=== PATIENT | male | born 1985 | race Caucasian/White ===

== ENCOUNTER 2018-07-11 17:49 | Emergency (ER) | payer OTHER ==
[~2018-07-11 17:49] MED LIST: ALBUAER INH
[2018-07-11 18:01] VITALS: TEMP 37; Ht 188 cm
[2018-07-11] MEDS ORDERED: ONDANSETRON INJ 2 MG/ML 2 ML VIAL IV STA (18:01)
[2018-07-11] MEDS ORDERED: MoRPHine SULFATE 4 MG/ML 1 ML CARP\\VIAL IV STA ×2 (18:01→18:38)
[2018-07-11] MEDS ORDERED: OPTIRAY 320 IV PRN (18:15)
[2018-07-11] MEDS ORDERED: VNTHFA/IN INH (18:19)
[2018-07-11 18:21] LABS: BASO % 0.8 %; BASO ABS # 0.07 K/uL (0-0.2); EOS % 4.6 %; EOS ABS # 0.42 K/uL (0-0.5); HEMATOCRIT 41.3 % (42-52); HEMOGLOBIN 14.8 g/dL (14.0-18.0); IG# 0.03 K/uL (0.00-0.02); LYMPH % 14.8 %; LYMPH ABS # 1.34 K/uL (1.2-3.4); MEAN CELL VOLUME 85.9 fL (80-100); MEAN CORPUSCULAR HEMOGLOBIN 30.8 pg (25-34); MEAN CORPUSCULAR HGB CONC 35.8 g/dl (32-36); MEAN PLATELET VOLUME 10.6 fL (7.4-10.4); MONO ABS # 0.54 K/uL (0.11-0.59); NEUT % 73.5 %; NEUT ABS # 6.67 K/uL (1.4-6.5); PLATELET COUNT 229 K/uL (130-400); RED CELL DISTRIBUTION WIDTH CV 12.3 % (11.5-14.5); RED CELL DISTRIBUTION WIDTH SD 38.2 fL (36.4-46.3); WHITE BLOOD COUNT 9.07 K/uL (4.8-10.8)
[2018-07-11 18:25] LABS: ISTAT CREATININE 1.3 mg/dl (0.6-1.3); ISTAT IONIZED CALCIUM 1.13 mmol/l (1.12-1.32); ISTAT POTASSIUM 3.5 mEq/L (3.3-5.0)
[2018-07-11 18:47] LABS: ALBUMIN 4.5 gm/dl (3.4-5.0); ALKALINE PHOSPHATASE 90 U/L (45-117); ALT/SGPT 25 U/L (12-78); AST/SGOT 24 U/L (15-37); BLOOD UREA NITROGEN 14 mg/dl (7-18); CALCIUM 8.8 mg/dl (8.5-10.1); CARBON DIOXIDE 26 mmol/L (21-32); CREATININE 1.32 mg/dl (0.60-1.40); POTASSIUM 3.5 mmol/L (3.5-5.1); SODIUM 141 mmol/L (136-145)
[2018-07-11 18:48] LABS: GLUCOSE 52 mg/dl (70-99)
[2018-07-11] MEDS ORDERED: DEXTROSE 50% 50 ML SYR IV STA ×2 (18:48→19:54)
--- NOTE | 2018-07-11 18:50 | DIAGNOSTIC IMAGING REPORT ---
CT OF THE CERVICAL SPINE WITHOUT CONTRAST CLINICAL HISTORY: Fall. COMPARISON STUDY: No previous studies for comparison. TECHNIQUE: Helical axial images of the cervical spine were obtained without IV contrast. Sagittal and coronal reconstructions were viewed. A dose lowering technique was utilized adhering to the principles of ALARA. FINDINGS: Alignment of the cervical spine is anatomic. Vertebral body heights are maintained. Craniocervical junction is intact. There is no acute cervical spine fracture. IMPRESSION: No acute cervical spine fracture or subluxation. Electronically signed by: Titi Hays M.D. 07/11/2018 6:49 PM Dictated Date/Time: 07/11/2018 6:47 PM
--- NOTE | 2018-07-11 19:03 | DIAGNOSTIC IMAGING REPORT ---
THORACIC SPINE CT CLINICAL HISTORY: Fall. COMPARISON STUDY: No previous studies for comparison. TECHNIQUE: Axial images of the thoracic spine were obtained without IV contrast. Sagittal and coronal reconstructions were viewed. FINDINGS: Note is made of an acute fracture of the T9 vertebral body which involves the superior and inferior endplates with 40% loss of vertebral body height. Fracture extends to the posterior cortex. There is no retropulsion. No extension into the posterior elements is noted. There is moderate paravertebral hemorrhage. Equivocal epidural hematoma is noted. This may be artifactual and is suboptimally assessed by CT. No additional acute thoracic spine fractures are noted. IMPRESSION: Acute burst fracture of the T9 vertebral body which involves the superior and inferior endplates as well as the posterior cortex. No retropulsion. No extension into the posterior elements. 40% loss of vertebral body height. Associated paravertebral hematoma. Apparent associated epidural hematoma may be artifactual however an MRI of the thoracic spine is recommended. Electronically signed by: Titi Hays M.D. 07/11/2018 7:02 PM Dictated Date/Time: 07/11/2018 6:49 PM
--- NOTE | 2018-07-11 19:12 | DIAGNOSTIC IMAGING REPORT ---
CT OF THE ABDOMEN AND PELVIS WITH CONTRAST CLINICAL HISTORY: Fall. COMPARISON STUDY: None. TECHNIQUE: Following IV administration of Optiray-320, axial images of the abdomen and pelvis were obtained from the lung bases to the proximal femurs. Images were reviewed in the axial, sagittal, and coronal planes. IV contrast was administered without complication. A dose lowering technique was utilized adhering to the principles of ALARA. CT DOSE: 2158.23 mGy.cm FINDINGS: No hemoperitoneum or pneumoperitoneum is present. There is no evidence for traumatic injury to the liver, spleen, adrenal glands, kidneys or pancreas. Caliber and wall thickness of small and large bowel are normal. There may be a previous right inguinal hernia repair with mesh. No acute lumbar spine fracture is identified. A T9 burst fracture is noted with possible associated epidural hematoma. No acute pelvic fracture is identified. IMPRESSION: 1. No evidence of traumatic injury to the solid abdominal viscera. 2. Moderate acute T9 burst fracture with paravertebral hematoma and possible associated epidural hematoma. An MRI of the thoracic spine is recommended. Findings discussed with Dr. Nation at time of dictation. Electronically signed by: Titi Hays M.D. 07/11/2018 7:11 PM Dictated Date/Time: 07/11/2018 7:02 PM
--- NOTE | 2018-07-11 19:14 | DIAGNOSTIC IMAGING REPORT ---
LUMBAR SPINE CT CLINICAL HISTORY: Fall. COMPARISON STUDY: No previous studies for comparison. TECHNIQUE: Axial images of the lumbar spine were obtained. Sagittal and coronal reconstructions were viewed. FINDINGS: Alignment of the lumbar spine is anatomic. Vertebral body heights are maintained. There is no acute fracture. The CT of the abdomen and pelvis will be reported separately. Facet joints are intact. Sacroiliac joints are intact. IMPRESSION: No acute lumbar spine fracture or subluxation. Electronically signed by: Titi Hays M.D. 07/11/2018 7:13 PM Dictated Date/Time: 07/11/2018 7:11 PM
[2018-07-11] MEDS ORDERED: HYDROmorphone INJ 1 MG/ML SYR IV STA (19:54)
--- NOTE | 2018-07-11 20:51 | EMERGENCY ROOM VISIT NOTE ---
History Report prepared by Elizabeth: Floyd Hernández Under the Supervision of: Dr. Dylan Nation M.D. First contact with patient: 17:53 Stated Complaint: FALL OUT OF TREE, TINGLING IN SPINE History of Present Illness The patient is a 33 year old male who presents to the Emergency Room with complaints of a fall. The patient reports he was in a tree when he slipped while trying to get out. He notes he fell approximately 8 feet and landed on his buttocks on dirt. He notes he did land on his buttocks, and did not hit his head or have LOC. He notes when he fell he had tingling and weakness in his bilateral legs, which he notes only lasted a few seconds and has since resolved. He states at this time he has mid-back pain and tingling to the back, but denies any pain to his neck or upper/lower back. The patient does note upper abdominal pain at this time. He denies chest pain or shortness of breath Source of History: patient Onset: x30 minutes Position: back Symptom Intensity: moderate Quality: ache Timing: constant Modifying Factors (Worsening): rest Modifying Factors (Relieving): movement Associated Symptoms: + abdominal pain, + back pain, No LOC, No headache, No neck pain, No chest pain, No SOB, No nausea, No vomiting, No diarrhea, No urinary symptoms, No weakness, No numbness Review of Systems See HPI for pertinent positives & negatives. A total of 10 systems reviewed and were otherwise negative. Constitutional: No fever, No chills Respiratory: No shortness of breath Cardiovascular: No chest pain Abdomen: + pain, No nausea, No vomiting, No diarrhea Musculoskeletal: + muscle pain (back) Genitourinary - Male: No hematuria, No dysuria, No urinary frequency, No urinary urgency Integumentary: No rash Past Medical & Surgical Medical Problems: (1) No Known Active Medical Problems Family History Patient reports no known family medical history. Social History Smoking Status: Never Smoker Alcohol Use: none Drug Use: none Marital Status: single Housing Status: other (lives with mother) Occupation Status: employed Current/Historical Medications Scheduled PRN Albuterol Hfa (Ventolin Hfa), 2 PUFFS INH Q6H PRN for SOB/Wheezing Allergies Coded Allergies: No Known Allergies (Unverified , 11/05/15) Physical Exam Vital Signs Date Time Temp Pulse Resp B/P (MAP) Pulse Ox O2 Delivery O2 Flow Rate FiO2 07/11/18 20:31 74 26 137/79 98 Room Air 07/11/18 20:01 69 27 134/89 97 Room Air 07/11/18 19:31 76 24 126/89 97 Room Air 07/11/18 19:30 71 20 126/89 98 Room Air 07/11/18 18:31 81 07/11/18 18:29 84 18 136/82 98 Room Air 07/11/18 18:01 37.0 75 16 140/94 100 Room Air Physical Exam Constitutional: Vital signs reviewed. Eyes: Pupils are equal round reactive to light. Conjunctiva are noninjected. ENT: Pharynx is clear without erythema or exudate. Mucous membranes are moist. Mild midline tenderness to the cervical spine without stepoff or deformity. Respiratory: Clear to auscultation bilaterally. Breath sounds are equal bilaterally. Cardiovascular: Regular rate and rhythm. No rubs or gallops. GI: Soft, nondistended. Tenderness RUQ with no guarding. Bowel sounds are present. Musculoskeletal: No chest wall tenderness. No extremity tenderness. Integumentary: No cyanosis. Neurological: The patient is awake and alert. Cranial nerves II-XII are intact. Motor is 5 out of 5 all extremities. Sensation is intact to light touch all extremities. Normal speech. No pronator drift. Psychiatric: Normal affect. Medical Decision & Procedures ER Provider Diagnostic Interpretation: CT OF THE ABDOMEN AND PELVIS WITH CONTRAST CLINICAL HISTORY: Fall. COMPARISON STUDY: None. TECHNIQUE: Following IV administration of Optiray-320, axial images of the abdomen and pelvis were obtained from the lung bases to the proximal femurs. Images were reviewed in the axial, sagittal, and coronal planes. IV contrast was administered without complication. A dose lowering technique was utilized adhering to the principles of ALARA. CT DOSE: 2158.23 mGy.cm FINDINGS: No hemoperitoneum or pneumoperitoneum is present. There is no evidence for traumatic injury to the liver, spleen, adrenal glands, kidneys or pancreas. Caliber and wall thickness of small and large bowel are normal. There may be a previous right inguinal hernia repair with mesh. No acute lumbar spine fracture is identified. A T9 burst fracture is noted with possible associated epidural hematoma. No acute pelvic fracture is identified. IMPRESSION: 1. No evidence of traumatic injury to the solid abdominal viscera. 2. Moderate acute T9 burst fracture with paravertebral hematoma and possible associated epidural hematoma. An MRI of the thoracic spine is recommended. Findings discussed with Dr. Nation at time of dictation. CT OF THE CERVICAL SPINE WITHOUT CONTRAST CLINICAL HISTORY: Fall. COMPARISON STUDY: No previous studies for comparison. TECHNIQUE: Helical axial images of the cervical spine were obtained without IV contrast. Sagittal and coronal reconstructions were viewed. A dose lowering technique was utilized adhering to the principles of ALARA. FINDINGS: Alignment of the cervical spine is anatomic. Vertebral body heights are maintained. Craniocervical junction is intact. There is no acute cervical spine fracture. IMPRESSION: No acute cervical spine fracture or subluxation. LUMBAR SPINE CT CLINICAL HISTORY: Fall. COMPARISON STUDY: No previous studies for comparison. TECHNIQUE: Axial images of the lumbar spine were obtained. Sagittal and coronal reconstructions were viewed. FINDINGS: Alignment of the lumbar spine is anatomic. Vertebral body heights are maintained. There is no acute fracture. The CT of the abdomen and pelvis will be reported separately. Facet joints are intact. Sacroiliac joints are intact. IMPRESSION: No acute lumbar spine fracture or subluxation. THORACIC SPINE CT CLINICAL HISTORY: Fall. COMPARISON STUDY: No previous studies for comparison. TECHNIQUE: Axial images of the thoracic spine were obtained without IV contrast. Sagittal and coronal reconstructions were viewed. FINDINGS: Note is made of an acute fracture of the T9 vertebral body which involves the superior and inferior endplates with 40% loss of vertebral body height. Fracture extends to the posterior cortex. There is no retropulsion. No extension into the posterior elements is noted. There is moderate paravertebral hemorrhage. Equivocal epidural hematoma is noted. This may be artifactual and is suboptimally assessed by CT. No additional acute thoracic spine fractures are noted. IMPRESSION: Acute burst fracture of the T9 vertebral body which involves the superior and inferior endplates as well as the posterior cortex. No retropulsion. No extension into the posterior elements. 40% loss of vertebral body height. Associated paravertebral hematoma. Apparent associated epidural hematoma may be artifactual however an MRI of the thoracic spine is recommended. Laboratory Results 07/11/18 18:00 Red Blood Count 4.81, Mean Corpuscular Volume 85.9, Mean Corpuscular Hemoglobin 30.8, Mean Corpuscular Hemoglobin Concent 35.8, Mean Platelet Volume 10.6, Neutrophils (%) (Auto) 73.5, Lymphocytes (%) (Auto) 14.8, Monocytes (%) (Auto) 6.0, Eosinophils (%) (Auto) 4.6, Basophils (%) (Auto) 0.8, Neutrophils # (Auto) 6.67, Lymphocytes # (Auto) 1.34, Monocytes # (Auto) 0.54, Eosinophils # (Auto) 0.42, Basophils # (Auto) 0.07 07/11/18 18:00 Test 07/11/18 18:00 07/11/18 18:16 07/11/18 19:33 White Blood Count 9.07 K/uL (4.8-10.8) Red Blood Count 4.81 M/uL (4.7-6.1) Hemoglobin 14.8 g/dL (14.0-18.0) Hematocrit 41.3 % (42-52) Mean Corpuscular Volume 85.9 fL (80-100) Mean Corpuscular Hemoglobin 30.8 pg (25-34) Mean Corpuscular Hemoglobin Concent 35.8 g/dl (32-36) Platelet Count 229 K/uL (130-400) Mean Platelet Volume 10.6 fL (7.4-10.4) Neutrophils (%) (Auto) 73.5 % Lymphocytes (%) (Auto) 14.8 % Monocytes (%) (Auto) 6.0 % Eosinophils (%) (Auto) 4.6 % Basophils (%) (Auto) 0.8 % Neutrophils # (Auto) 6.67 K/uL (1.4-6.5) Lymphocytes # (Auto) 1.34 K/uL (1.2-3.4) Monocytes # (Auto) 0.54 K/uL (0.11-0.59) Eosinophils # (Auto) 0.42 K/uL (0-0.5) Basophils # (Auto) 0.07 K/uL (0-0.2) RDW Standard Deviation 38.2 fL (36.4-46.3) RDW Coefficient of Variation 12.3 % (11.5-14.5) Immature Granulocyte % (Auto) 0.3 % Immature Granulocyte # (Auto) 0.03 K/uL (0.00-0.02) Estimated GFR () 82.7 Estimated GFR (Non- 71.4 BUN/Creatinine Ratio 10.2 (10-20) Calcium Level 8.8 mg/dl (8.5-10.1) Total Bilirubin 0.6 mg/dl (0.2-1) Direct Bilirubin 0.1 mg/dl (0-0.2) Aspartate Amino Transf (AST/SGOT) 24 U/L (15-37) Alanine Aminotransferase (ALT/SGPT) 25 U/L (12-78) Alkaline Phosphatase 90 U/L (45-117) Total Protein 8.0 gm/dl (6.4-8.2) Albumin 4.5 gm/dl (3.4-5.0) Lipase 68 U/L (73-393) Bedside Hemoglobin 14.6 g/dl (14.0-18.0) Bedside Hematocrit 43 % (42-52) Bedside Sodium 144 mEq/L (135-144) Bedside Potassium 3.5 mEq/L (3.3-5.0) Bedside Chloride 103 mEq/L (101-112) Bedside Total CO2 25 mEq/l (24-31) Anion Gap 20.0 mmol/L (16-25) Bedside Blood Urea Nitrogen 13 mg/dl (7-18) Bedside Creatinine 1.3 mg/dl (0.6-1.3) Bedside Glucose (other) 56 mg/dl (70-99) Bedside Ionized Calcium (Halina) 1.13 mmol/l (1.12-1.32) Bedside Glucose 77 mg/dl (70-99) Medications Administered Medications (Trade) Dose Ordered Sig/Fitz Route Start Time Stop Time Status Last Admin Dose Admin Ondansetron HCl (Zofran Inj) 4 mg NOW STAT IV 07/11/18 18:01 07/11/18 18:04 DC 07/11/18 18:07 4 MG Morphine Sulfate (MoRPHine SULFATE INJ) 4 mg NOW STAT IV 07/11/18 18:01 07/11/18 18:04 DC 07/11/18 18:08 4 MG Morphine Sulfate (MoRPHine SULFATE INJ) 4 mg NOW STAT IV 07/11/18 18:38 07/11/18 18:39 DC 07/11/18 18:48 4 MG Dextrose (Dextrose 50% 50ML Syringe) 25 ml NOW STAT IV 07/11/18 18:48 07/11/18 18:49 DC 07/11/18 18:55 25 ML Hydromorphone HCl (Dilaudid Inj) 0.5 mg NOW STAT IV 07/11/18 19:54 07/11/18 19:55 DC 07/11/18 19:58 0.5 MG Dextrose (Dextrose 50% 50ML Syringe) 25 ml NOW STAT IV 07/11/18 19:54 07/11/18 19:55 DC 07/11/18 19:58 25 ML ED Course Rechecks: 1837: Reviewed CT and results thus far. Patient notes he is still in pain at this time. 1899: Patient notes he did eat today, and has never had problems with his blood sugar in the past. He denies dizziness. 1907: Dr. Hays (Radiology) called and advised the patient has a T9 Burst Fracture and possible small epidural hematoma. This was discussed with the patient. He advised if he needs transferred, he would prefer to go to [facility]. 1937: Advised patient and his mother of transfer to [facility] has been accepted. He is aware of treatment/plan and verbalized agreement and understanding. All questions answered. Patient will be transferred to [facility] under the acceptance of Dr. Hays (Trauma Surgery). Medical Decision This is a 33-year-old male who presents with injuries after fall. Differential diagnosis includes vertebral compression fracture, burst fracture, spinal cord injury, pelvic fracture, visceral injury. I did perform a limited focused review of portions of the patient's old chart on the electronic medical record. The patient has had no recent pertinent visits to this hospital. I did evaluate the patient as noted above. The patient fell out of tree and landed on his buttocks. He complains of back pain. He is neurologically intact. He does have right upper quadrant tenderness and so I did perform a bedside FAST exam which was negative. He is placed in a cervical collar. IV access was established. I did treat him with IV morphine and Zofran. I did order and review the patient's blood work as noted in the electronic medical record. He is hypoglycemic. He did state that he ate this afternoon and has never had hypoglycemia before. He denies any dizziness or sweating. He was given 25 mL of D50 IV. We did keep him n.p.o. because of the possibility of intra-abdominal injury. I did order a CT of the cervical, thoracic and lumbar spine, abdomen and pelvis. I did review the images myself as well as the radiology report as described above. There is no evidence of visceral injury. He does have a T9 compression fracture with a possible subdural hematoma. I did discuss the case with Dr. Salgado of orthopedic spine who recommended he be transferred to a tertiary care center for trauma evaluation. I did discuss this with the patient and his mother. They agreed to transfer to [facility]. I did discuss case with Dr. Hays of trauma surgery at [facility]. He was accepted and transferred via [facility] ambulance. He was given additional morphine IV and Dilaudid IV for pain control. Sugar was 76 and he was given another 25 mL of IV dextrose. Medication Reconcilliation Current Medication List: was personally reviewed by me Blood Pressure Screening Patient's blood pressure: Elevated blood pressure Blood pressure disposition: Referred to PCP Consults Time Called: 1914 Consulting Physician: Dr. Salgado (Orthopedics/Spine Surgeon) Returned Call: 1917 Recommends calling patient a trauma and transferring to [facility]. Additional Consults: Time Called: 1920 Consulted Physician: Dr. Hays [facility] Trauma Surgery Returned Call: 1936 Additional Comments: Accepted transfer of patient. Impression Primary Impression: Burst fracture of T9 vertebra Additional Impressions: Epidural hematoma Hypoglycemia Right upper quadrant abdominal pain Scribe Attestation The scribe's documentation has been prepared under my direct and personally reviewed by me in its entirety. I confirm that the note above accurately reflects all work, treatment, procedures, and medical decision making performed by me. Departure Information Dispostion Transfer Acute Care Facility Forms HOME CARE DOCUMENTATION FORM, IMPORTANT VISIT INFORMATION Patient Instructions My [facility] Problem Qualifiers
[2018-07-11 21:12] VITALS: BP 137/79; PULSE 90; O2SAT 97
== END 2018-07-11 21:13 | disposition short-term general hospital (02) ==
LOC: EDBD 17:49 → C.EDC 17:50
DX: S22.071A Stable burst fracture of T9-T10 vertebra, initial encounter for closed fracture (principal); S24.103A Unspecified injury at T7-T10 level of thoracic spinal cord, initial encounter; W14.XXXA Fall from tree, initial encounter; E16.2 Hypoglycemia, unspecified; R10.11 Right upper quadrant pain